=== PATIENT | male | born 1970 | race Caucasian/White ===

== ENCOUNTER 2017-04-30 20:38 | Emergency (ER) | payer BC ==
[2017-04-30] MEDS ORDERED: Ondansetron INJ* 2 MG/ML VIAL IV ONE (23:08)
[2017-04-30] MEDS ORDERED: NS 0.9% 1000 ML* 1,000 ML IV ONE (23:08)
[2017-04-30 23:21] LABS: Hematocrit 45 % (42-52); Hemoglobin 15.3 g/dl (14.0-18.0); Mean Corpuscular HGB Conc 35 g/dl (31-36); Mean Corpuscular Hemoglobin 28 pg (27-31); Mean Corpuscular Volume 82 fL (80-94); Mean Platelet Volume 9 um3 (7.4-10.4); Red Blood Count 5.41 10^6/ul (4.0-5.4); Red Cell Distribution Width 14 % (10.5-15); White Blood Count 10.4 10^3/ul (3.5-10.8)
[2017-04-30 23:32] LABS: Albumin 4.7 g/dL (3.2-5.2); BUN/Creatinine Ratio 13.6 (8-20); C Reactive Protein 1.27 mg/L (< 5.00); Calcium 9.8 mg/dL (8.6-10.3); EGFR African American 86.2 (>60); EGFR Non-African American 67.1 (>60); Globulin 2.4 g/dL (2-4); Total Bilirubin 0.7 mg/dL (0.2-1.0); Total Protein 7.1 g/dL (6.4-8.9)
[2017-04-30] MEDS ORDERED: Pantoprazole IV* 40 MG IV ONE (23:32)
[2017-04-30 23:34] LABS: Potassium 3.8 mmol/L (3.5-5.0)
[2017-05-01] MEDS ORDERED: HYDROcodone/ACETAMIN 5-325 MG* 1 TAB PO ONE (00:55)
--- NOTE | 2017-05-01 01:00 | ED ---
Ru Carey Alok, scribed for Sabi Jacobo MD on 04/30/17 at 2249 . Abdominal Pain/Male - HPI Summary HPI Summary: 46M presents to the ED with RUQ abd pain radiating to the back beginning at 1930 this evening. Pt states he consumed a fatty meal one hour before abd pain began and describes the pain as a burning. Pt states he has had a similar episode of abd pain in the recent past more localized in the back. Pt states his abd pain has improved somewhat since arriving to the ED but is still present. Pt denies dysuria. Pt drinks ETOH occasionally. - History of Current Complaint Chief Complaint: EDAbdPain Stated Complaint: ABD PAIN Time Seen by Provider: 04/30/17 22:04 Hx Obtained From: Patient Onset/Duration: Lasting Hours, Still Present Timing: Constant Severity Initially: Moderate Severity Currently: Moderate Pain Intensity: 6 Pain Scale Used: 0-10 Numeric Location: Discrete At: RUQ Radiates: Yes Radiates to: Back Character: Burning Aggravating Factor(s): Food Alleviating Factor(s): Nothing Associated Signs And Symptoms: Positive: Back Pain. Negative: Fever, Urinary Symptoms - Allergies/Home Medications Allergies/Adverse Reactions: Allergies Allergy/AdvReac Type Severity Reaction Status Date / Time No Known Allergies Allergy Verified 12/02/14 09:31 PMH/Surg Hx/FS Hx/Imm Hx Endocrine/Hematology History: Denies: Hx Diabetes Cardiovascular History: Denies: Hx Hypertension, Hx Pacemaker/ICD History: Denies: Hx Renal Disease Sensory History: Denies: Hx Hearing Aid Psychiatric History: Denies: Hx Panic Disorder - Surgical History Surgery Procedure, Year, and Place: VASECTOMY. LASIX EYE SURG Infectious Disease History: No Infectious Disease History: Denies: Traveled Outside the [place] in Last 30 Days - Family History Known Family History: Negative: Diabetes - Social History Occupation: Employed Full-time Alcohol Use: None Substance Use Type: Reports: None Smoking Status (MU): Never Smoked Tobacco Review of Systems Negative: Fever Positive: Abdominal Pain Negative: dysuria Positive: Other - back pain All Other Systems Reviewed And Are Negative: Yes Physical Exam Triage Information Reviewed: Yes Vital Signs On Initial Exam: Initial Vitals Temp Pulse Resp BP Pulse Ox 97.6 F 84 18 203/102 98 04/30/17 20:50 04/30/17 20:50 04/30/17 20:50 04/30/17 20:50 04/30/17 20:50 Vital Signs Reviewed: Yes Appearance: Positive: Well-Appearing, No Pain Distress Skin: Positive: Warm, Skin Color Reflects Adequate Perfusion, Dry Eyes: Positive: EOMI, PAYTON ENT: Positive: Pharynx normal, TMs normal Neck: Positive: Supple, Nontender Respiratory/Lung Sounds: Positive: Clear to Auscultation, Breath Sounds Present. Negative: Rales, Rhonchi, Wheezes Cardiovascular: Positive: RRR, Other - no gallop. Negative: Murmur, Rub Abdomen Description: Positive: Soft, Other: - no rebound. RUQ tenderness.. Negative: Distended, Guarding Bowel Sounds: Positive: Present Musculoskeletal: Positive: Strength/ROM Intact. Negative: Edema Left, Edema Right Neurological: Positive: Sensory/Motor Intact, Alert, Oriented to Person Place, Time, CN Intact II-III Psychiatric: Positive: Affect/Mood Appropriate - [place] Coma Scale Coma Scale Total: 15 Diagnostics - Vital Signs Vital Signs Temp Pulse Resp BP Pulse Ox 04/30/17 22:30 73 11 143/85 95 04/30/17 22:00 73 17 135/94 94 04/30/17 21:34 11 04/30/17 21:32 153/93 04/30/17 20:50 97.6 F 84 18 203/102 98 - Laboratory Lab Results: Lab Results 04/30/17 04/30/17 04/30/17 Range/Units 21:37 21:37 21:37 WBC 10.4 (3.5-10.8) 10^3/ul RBC 5.41 H (4.0-5.4) 10^6/ul Hgb 15.3 (14.0-18.0) g/dl Hct 45 (42-52) % MCV 82 (80-94) fL MCH 28 (27-31) pg MCHC 35 (31-36) g/dl RDW 14 (10.5-15) % Plt Count 200 (150-450) 10^3/ul MPV 9 (7.4-10.4) um3 Neut % (Auto) 75.5 (38-83) % Lymph % (Auto) 17.9 L (25-47) % [place] % (Auto) 5.2 (1-9) % Eos % (Auto) 0.8 (0-6) % Baso % (Auto) 0.6 (0-2) % Absolute Neuts (auto) 7.9 H (1.5-7.7) 10^3/ul Absolute Lymphs (auto) 1.9 (1.0-4.8) 10^3/ul Absolute Monos (auto) 0.5 (0-0.8) 10^3/ul Absolute Eos (auto) 0.1 (0-0.6) 10^3/ul Absolute Basos (auto) 0.1 (0-0.2) 10^3/ul Absolute Nucleated RBC 0.01 10^3/ul Nucleated RBC % 0.1 Sodium 137 (133-145) mmol/L Potassium 3.8 (3.5-5.0) mmol/L Chloride 104 (101-111) mmol/L Carbon Dioxide 25 (22-32) mmol/L Anion Gap 8 (2-11) mmol/L BUN 16 (6-24) mg/dL Creatinine 1.18 H (0.67-1.17) mg/dL Est GFR ( Amer) 86.2 (>60) Est GFR (Non-Af Amer) 67.1 (>60) BUN/Creatinine Ratio 13.6 (8-20) Glucose 112 H (70-100) mg/dL Lactic Acid 1.1 (0.5-2.0) mmol/L Calcium 9.8 (8.6-10.3) mg/dL Total Bilirubin 0.70 (0.2-1.0) mg/dL AST 114 H (13-39) U/L ALT 77 H (7-52) U/L Alkaline Phosphatase 58 (34-104) U/L C-Reactive Protein 1.27 (< 5.00) mg/L Total Protein 7.1 (6.4-8.9) g/dL Albumin 4.7 (3.2-5.2) g/dL Globulin 2.4 (2-4) g/dL Albumin/Globulin Ratio 2.0 (1-3) Amylase 29 (29-103) U/L Lipase 42 (11.0-82.0) U/L Result Diagrams: 04/30/17 21:37 04/30/17 21:37 Lab Statement: Any lab studies that have been ordered have been reviewed, and results considered in the medical decision making process. - Additional Comments Diagnostic Additional Comments: gallbladder US - Findings: Positive for cholelithiasis. However no gallbladder wall thickening or pericholecystic fluid. Ultrasound Harrlel's sign is negative per program director group work. The common bile duct could not be visualized. Liver is borderline enlarged at 18 cm and is fatty infiltrated. No right hydronephrosis. No right upper quadrant free fluid. Abdominal Pain Fem Course/Dx - Course Course Of Treatment: 46 yo male with onset of epigastric pain radiating to back 30 mins after eating meat tacos with sour cream. He is tender to palpation epigastric and right upper quadrant, u/s shows stones and liver enzymes are sl elevated. Pancreatic enzymes are neg and he is not a drinker. He has no risks for ischemic colitis but his pressure was elevated when he arrived and was in pain that pain rapidly resolved on its own. He does still have pain at a 2 but does not want meds. He will followup with surgery, he does also identify some reflux and so he will be started on protonix for 14 days - Diagnoses Provider Diagnoses: Gall bladder disease, Gallstones, GERD (gastroesophageal reflux disease) Discharge - Discharge Plan Condition: Stable Disposition: HOME Prescriptions: Pantoprazole Sodium [Protonix] 20 mg PO DAILY #14 tab Patient Education Materials: Gallstones (ED), Gastroesophageal Reflux Disease ( ED) Referrals: Yaneli Matos NP [Primary Care Provider] - Bryce Arthur MD [Medical Doctor] - The documentation as recorded by the Ru harding Alok accurately reflects the service I personally performed and the decisions made by me, Sabi Jacobo MD.
[2017-05-01 01:19] VITALS: BP 142/88
--- NOTE | 2017-05-01 07:42 | RAD ---
INDICATION: Right upper quadrant pain. COMPARISON: There are no prior studies available for comparison. TECHNIQUE: Multiple real-time images of the right upper quadrant were obtained. FINDINGS: There are gallstones present. No pericholecystic fluid or gallbladder wall thickening is present. No positive sonographic Harrell sign is seen. No intra or extrahepatic ductal distention is present. The common bile duct was not well seen. The liver is normal in size and increased in echogenicity suggestive of fatty infiltration. No significant focal abnormality is seen. The pancreas was appear borderline bowel gas. The right kidney is normal in size without evidence for hydronephrosis. IMPRESSION: 1. CHOLELITHIASIS WITHOUT EVIDENCE FOR ACUTE CHOLECYSTITIS. 2. FINDINGS SUGGESTIVE OF FATTY INFILTRATION OF THE LIVER.
== END 2017-05-01 01:17 | disposition home or self-care (01) ==
LOC: ED 20:38
DX: K82.9 Disease of gallbladder, unspecified (principal); K80.80 Other cholelithiasis without obstruction; K21.9 Gastro-esophageal reflux disease without esophagitis; R10.11 Right upper quadrant pain; M54.9 Dorsalgia, unspecified
CPT/HCPCS: 36415; 76705; 80053; 82150; 83605; 83690; 85025; 86140; 96374; 96375; 99284; J2405

== ENCOUNTER 2019-01-06 02:41 | Emergency (ER) | payer BC ==
[2019-01-06] MEDS ORDERED: NS 0.9% 1000 ML** 1,000 ML IV ONE (02:54)
[2019-01-06] MEDS ORDERED: Famotidine TAB* 20 MG PO ONE (03:13)
[2019-01-06] MEDS ORDERED: Al Hydrox/Mg Hydrox/Simet LIQ* 30 ML UDC PO ONE (03:13)
[2019-01-06] MEDS ORDERED: Sucralfate TAB* 1 GM PO ONE (03:13)
[2019-01-06 03:14] LABS: ABS Basophils 0.1 10^3/ul (0-0.2); ABS Eosinophils 0.1 10^3/ul (0-0.6); ABS Monocytes 0.6 10^3/ul (0-0.8); ABS Neutrophils 6.3 10^3/ul (1.5-7.7); ABS Nucleated RBC 0 10^3/ul; Eosinophil % 1.3 %; Hematocrit 45 % (42-52); Hemoglobin 15.5 g/dl (14.0-18.0); Lymphocyte % 21.6 %; Mean Corpuscular HGB Conc 34 g/dl (31-36); Mean Corpuscular Hemoglobin 30 pg (27-31); Mean Corpuscular Volume 87 fL (80-94); Mean Platelet Volume 8.1 fL (7.4-10.4); Nucleated Red Blood Cells % 0; Platelet Count 266 10^3/ul (150-450); Red Blood Count 5.19 10^6/ul (4.00-5.40); Red Cell Distribution Width 13 % (10.5-15)
--- NOTE | 2019-01-06 03:18 | ED ---
Complex/Multi-Sys Presentation - HPI Summary HPI Summary: Patient is a 48 y/o M presenting to ED with complaints of back pain, midsternal /epigastric pain onsetting last night. In the room, he states that he thinks he is having another "gallbladder attack". PMHx of gallstones, patient is followed by Dr. Hobbs. He states that there was a desire to remove his gallbladder but patient decided against this. Patient notes that he is to see Dr. Hobbs tomorrow on 01/07. At present, pain is mostly in upper back but it has been "moving" to midsternal chest/epigastric area. Onset of pain at last night, he denies pain in shoulder, states that pain onset a few hours after he ate pasta and chicken dinner. Patient reports similar episodes of pain related to his gallbladder issues, but states that he was concerned that the pain was migrating to his chest/epigastric area. Patient does not smoke cigarettes. No N/ V but states he was experiencing reflux. Patient took 3 ibuprofen 3 hours ago after onset of pain with no relief or worsening of Sx. In room, he states pain is improving. FMHx of kidney stones. No Hx of pancreatic issues, states he is an occasional drinker of alcohol. On triage, pain is rated 7/10, nothing is noted to aggravate/alleviate Sx. Home medications and allergies are reviewed. - History Of Current Complaint Chief Complaint: EDAbdPain Time Seen by Provider: 01/06/19 02:59 Hx Obtained From: Patient Onset/Duration: Lasting Hours - onset last night, Still Present Timing: Constant, Hours - onset last night Severity Currently: Severe Severity Initially: Moderate Location: Pain At: - upper back, chest/epigastric area Aggravating Factor(s): nothing Alleviating Factor(s): nothing Associated Signs And Symptoms: Positive: Chest Pain, Abdominal Pain - epigastric , Back Pain. Negative: Nausea, Vomiting - Allergies/Home Medications Allergies/Adverse Reactions: Allergies Allergy/AdvReac Type Severity Reaction Status Date / Time No Known Allergies Allergy Verified 01/06/19 02:47 PMH/Surg Hx/FS Hx/Imm Hx Endocrine/Hematology History: Denies: Hx Diabetes Cardiovascular History: Denies: Hx Hypertension, Hx Pacemaker/ICD History: Denies: Hx Renal Disease Sensory History: Denies: Hx Hearing Aid Psychiatric History: Denies: Hx Panic Disorder - Surgical History Surgery Procedure, Year, and Place: VASECTOMY. LASIX EYE SURG Infectious Disease History: No Infectious Disease History: Denies: Traveled Outside the [place] in Last 30 Days - Family History Known Family History: Positive: Renal Disease - kidney stones Negative: Diabetes - Social History Alcohol Use: None Substance Use Type: Reports: None Smoking Status (MU): Never Smoked Tobacco Review of Systems Positive: Chest Pain Positive: Abdominal Pain - epigastric . Negative: Vomiting, Nausea Musculoskeletal: Other - POSITIVE - BACK PAIN; NEGATIVE - SHOULDER PAIN All Other Systems Reviewed And Are Negative: Yes Physical Exam - Summary Physical Exam Summary: Appearance: Well appearing, no pain distress Skin: warm, dry, reflects adequate perfusion Head/face: normal Eyes: EOMI, PAYTON ENT: mucous membranes moist Neck: supple, non-tender Respiratory: CTA, breath sounds present Cardiovascular: RRR, pulses symmetrical Abdomen: non-tender, soft, no palpable masses Bowel Sounds: present Musculoskeletal: normal, strength/ROM intact Neuro: normal, sensory motor intact, A&Ox3 Triage Information Reviewed: Yes Vital Signs On Initial Exam: Initial Vitals Temp Pulse Resp BP Pulse Ox 97.9 F 78 18 172/112 96 01/06/19 02:44 01/06/19 02:44 01/06/19 02:44 01/06/19 02:44 01/06/19 02:44 Vital Signs Reviewed: Yes Diagnostics - Vital Signs Vital Signs Temp Pulse Resp BP Pulse Ox 01/06/19 02:44 97.9 F 78 18 172/112 96 - Laboratory Result Diagrams: 01/06/19 03:05 01/06/19 03:05 Lab Statement: Any lab studies that have been ordered have been reviewed, and results considered in the medical decision making process. - Radiology bedside ultrasound Radiology Interpretation Completed By: ED Physician - Performed by me. Gallbladder is nondistended with visible stones. The wall is normal and there is no pericholecystic fluid negative for sonographic Harrell. The abdominal aorta measures 2.55 cm - EKG 0330 Cardiac Rate: NL - rate of 69 BPM EKG Rhythm: Sinus Rhythm ST Segment: Normal Summary of EKG Findings: EKG showed NSR with rate of 69 BPM, normal axis, normal interval, normal ST. Re-Evaluation - Re-Evaluation First Eval Re-Evaluation Time: 03:15 Comment: Bedside US performed by Dr. Carmen. Gallstones noted, no sonogprahic harrell's, could not visualize common bile ducts, no thickening of the wall. Second Eval Re-Evaluation Time: 04:58 Change: Improved Comment: Patient reports that he is feeling better after medications. Patient will be discharged to home and follow up with Dr. Hobbs as planned tomorrow. Complex Multi-Symp Course/Dx Course Of Treatment: Nurse's notes reviewed. Patient with a history of biliary colic and known gallstones presents with mid back pain that is nonradiating and a lack of urinary symptoms. He has normal lipase and LFTs. Bedside ultrasound was performed given that there is no available formal ultrasound at this hour. There is no evidence for acute cholecystitis. The common bile duct was not visualized. He was treated here for discomfort with significant relief. He is able to be discharged home and has follow-up with his surgeon on Monday. - Diagnoses Differential Diagnoses/HQI/PQRI: Other - Pancreatitis, cholecystitis, acute gastritis, abdominal aortic aneurysm Provider Diagnoses: Biliary colic, Abdominal pain Discharge - Sign-Out/Discharge Documenting (check all that apply): Patient Departure - discharge Patient Received Moderate/Deep Sedation with Procedure: No - NO PROCEDURES DONE - Discharge Plan Condition: Improved Disposition: HOME Prescriptions: Famotidine TAB* [Pepcid 20 MG TAB*] 20 mg PO BID #20 tab Naproxen [Naproxen 500 mg tab] 500 mg PO BID PRN #10 tablet PRN Reason: Pain traMADol TAB* [Ultram*] 50 mg PO Q8H PRN #10 tab MDD 3 PRN Reason: more severe pain Patient Education Materials: Biliary Colic (ED) Referrals: Cyndee Sanders MD [Primary Care Provider] - Rodney Hobbs MD [Medical Doctor] - Additional Instructions: Follow-up with the surgeon on Monday as scheduled. You may need to have further testing done. Strictly avoid fat in your diet. Return with fever, vomiting, uncontrolled pain, worse or other concerns. - Billing Disposition and Condition Condition: IMPROVED Disposition: Home - Attestation Statements Document Initiated by Scribe: Yes Documenting Scribe: DEE SCHROEDER Provider For Whom Scribe is Documenting (Include Credential): DEMARIO CARMEN MD Scribe Attestation: I, DEE SCHROEDER , scribed for DEMARIO CARMEN MD on 01/06/19 at 0710. Scribe Documentation Reviewed: Yes Provider Attestation: The documentation as recorded by the scribe, DEE SCHROEDER accurately reflects the service I personally performed and the decisions made by me, DEMARIO CARMEN MD Status of Scribe Document: Viewed
[2019-01-06 03:20] LABS: INR 0.93 (0.77-1.02)
[2019-01-06 03:31] LABS: Albumin 5.1 g/dL (3.2-5.2); Albumin/Globulin Ratio 2.1 (1-3); C Reactive Protein 1.6 mg/L (<8.01); Calcium 9.8 mg/dL (8.6-10.3); EGFR African American 78.1 (>60); EGFR Non-African American 64.6 (>60); Globulin 2.4 g/dL (2-4); Total Bilirubin 0.5 mg/dL (0.2-1.0); Total Protein 7.5 g/dL (6.4-8.9)
[2019-01-06 04:02] LABS: Potassium 4.1 mmol/L (3.5-5.0)
[2019-01-06] MEDS ORDERED: oxyCODONE/Acetamin 5/325 MG* TAB PO ONE (04:14)
[2019-01-06] MEDS ORDERED: Ketorolac INJ* 60 MG/2 ML VIAL IM ONE (04:14)
[2019-01-06 06:00] VITALS: BP 148/89
== END 2019-01-06 05:59 | disposition home or self-care (01) ==
LOC: ED 02:41
DX: K80.50 Calculus of bile duct without cholangitis or cholecystitis without obstruction (principal); R10.9 Unspecified abdominal pain; R07.9 Chest pain, unspecified; R10.13 Epigastric pain; M54.9 Dorsalgia, unspecified
CPT/HCPCS: 36415; 80053; 83605; 83690; 84484; 85025; 85610; 86140; 93005; 96372; 99283; A9270-GY; J1885

== ENCOUNTER → 2019-01-22 05:42 | Day surgery (SDC) | payer BC ==
[~2019-01-22 05:42] MED LIST: Acetaminophen IV 1GM/100ML * 1,000 MG/100 ML VIAL IVPB ONE; Acetaminophen IV 1GM/100ML * 100 ML ONE; Buffered Lidocaine 1% SYRIN* 1 ML/SYRINGE INTRADERM ONE; Bupivacaine 0.25% W/EPI* 10 ML SDV ONE; Bupivacaine 0.5% W/EPI SDV* 30 ML VIAL ONE; Dexamethasone IV* 4 MG/ML 1 ML (4 MG) ONE; DiMENhydriNATE IV* 50 MG/ML VIAL IV PUSH PRN; DiMENhydriNATE IV* 50 MG/ML VIAL ONE; Famotidine IV* 10 MG/ML 2 ML (20 mg) IV ONE; Famotidine IV* 10 MG/ML 2 ML (20 mg) ONE; Glycopyrrolate IV* 0.2 MG/ML 1 ML VIAL ONE; HYDROcodone/ACETAMIN 5-325 MG* 1 TAB ONE; HYDROcodone/ACETAMIN 5-325 MG* 1 TAB PO PRN; HYDROmorphone INJ1* 1 MG/ML SYRINGE ONE; Ketorolac INJ* 30 MG/ML 1 ML VIAL ONE; Lactated Ringers 1000 ML Bag* 1,000 ML IV SCH; Lidocaine 2% PF * 5 ML VIAL ONE; Midazolam* 1 MG/ML 5 ML VIAL (5 MG) ONE; Naloxone* 0.4 MG/ML 1 ML VIAL IV PRN; Neostigmine Methylsulfate* 1 MG/ML 10 ML VIAL (1 mg/ml) ONE; Ondansetron INJ* 2 MG/ML VIAL ONE; Propofol* 10 MG/ML 20 ML BTL ONE; Rocuronium* 10 MG/ML VIAL ONE; Succinylcholine* 20 MG/ML 10 ML VIAL ONE; ceFAZolin 2 GM in NS PREMIX(*) 2 GM/100 ML BAG IVPB ONE; fentaNYL* 50 MCG/ML 2 ML VIAL (100 MCG VIAL) ONE; hydrALAZINE IV* 20 MG/ML VIAL ONE
[2019-01-22] MEDS: HYDROmorphone INJ1* 1 MG/ML SYRINGE IV PRN ×2 (09:57→10:11)
[2019-01-22 11:18] VITALS: BP 160/98
--- NOTE | 2019-01-22 20:58 | OP ---
CC: Cyndee Sanders MD * DATE OF OPERATION: 01/22/19 - [facility] DATE OF : 74 SURGEON: Rodney Hobbs MD. OPERATIONS LABEL CLERK: LILLIAN Monroy student. ANESTHESIOLOGIST: Carmen Yarbrough MD ANESTHESIA: General endotracheal. PRE-OP DIAGNOSIS: Symptomatic cholelithiasis. POST-OP DIAGNOSES: Symptomatic cholelithiasis and chronic cholecystitis. OPERATIVE PROCEDURE: Laparoscopic cholecystectomy. ESTIMATED BLOOD LOSS: Less than 50 mL. IV FLUIDS: Crystalloid. SPECIMENS: Gallbladder. DRAINS: None. COMPLICATIONS: None. COUNTS: The instruments, needle and sponge counts were correct. DESCRIPTION OF PROCEDURE: The patient was brought to the operating room and placed on the table supine. Sequential compression devices were placed on both lower extremities. General anesthesia was administered. The abdomen was prepped and draped in the usual sterile fashion. A time-out was performed. Local anesthetic was infiltrated into the skin and soft tissue prior to making each incision. Entry to the abdomen was through a transumbilical vertical incision using an open technique. After accessing the peritoneal cavity, a 5 mm trocar was placed, carbon dioxide was insufflated to a pressure of 15 mmHg. Under direct visualization, 5 mm trocars were placed in the subxiphoid position and 2 in the right upper quadrant. The initial umbilical trocars were exchanged for a 12 mm trocar. Inspection in the right upper quadrant revealed omentum adherent to the fundus of the gallbladder and this was taken down using a combination of sharp and blunt dissection. The gallbladder fundus was grasped and retracted superiorly. There appeared to be chronic inflammatory changes. There were adhesions to the duodenum that were taken down sharply. The peritoneum investing the gallbladder was incised on the medial and lateral aspects in order to dissect down to the cystic duct and cystic artery and obtain a critical view. Both structures were doubly clipped and divided. The gallbladder was grasped at the cystic duct stump and retracted cephalad as the gallbladder was dissected free from the liver staying in an avascular plane. Once the gallbladder was freed, it was placed in an endoscopic retrieval bag and retrieved through the umbilical site. After reestablishing pneumoperitoneum, inspection revealed there was some oozing along the edge of the gallbladder fossa in the anterior aspect, which was cauterized to achieve hemostasis. Copious lavage was performed until clear. Clips were noted to be intact. Hemostasis was assured. The ports were removed under direct visualization and carbon dioxide was released. The umbilical wound was closed with 0-Vicryl in an interrupted [id number] fashion to approximate the fascia. Skin incisions were closed with 4-0 Monocryl in a subcuticular fashion. Dressings were applied. The patient tolerated this procedure well, was extubated and transferred to recovery room in stable condition. [id number]/[facility] #: [id number] KEVIN
== END | disposition home or self-care (01) ==
LOC: OR 05:42
PROVIDERS: ATTEND Surgery
DX: K80.10 Calculus of gallbladder with chronic cholecystitis without obstruction (principal)
CPT/HCPCS: 88304; J0330; J0360; J0690; J1100; J1170; J1240; J1885; J2250; J2405; J2704; J2710; J3010